=== PATIENT | female | born 1965 | race Hispanic/Latino ===

== ENCOUNTER 2023-03-24 14:01 | Inpatient (IN) | payer BC ==
--- OUTSIDE RECORDS SUMMARY | 2023-03-24 14:05 | XMS REPORT | Clinical Summary ---
Author Name Unknown Organization [facility] Address [address] [place] [address] Care Team Providers Care Childhood Development Teacher Name Role Phone Sandoval Galvez MD Unavailable [phone] Kolby Abdullahi MD Primary Care Provid er Maribel Mike Primary Care Provider Nya Frost APRN Unavailable Jennifer Kessler APRN Primary Care Provider [phone] Allergies Active Allergy Reactions Criticality Noted Date Comments Adhesive Tape-Silicones 01/07/2018 Latex 01/07/2018 Medications Medication Sig Dispensed Refills Start Date End Date Status losartan (COZAAR) 50 mg tablet Take 1 tablet (50 mg) by mouth daily. 0 05/08/2018 Active valACYclovir (VALTREX) 500 mg tablet Take 1 tablet (500 mg) by mouth as needed. 0 02/25/2020 Active candesartan (ATACAND) 32 mg tablet daily. 0 01/17/2022 Active hydroxyzine HCl (ATARAX) 10 mg tablet as needed. 0 01/17/2022 Active metFORMIN (GLUCOPHAGE-XR) 500 mg 24 hr tablet daily. 0 01/17/2022 Active semaglutide (Ozempic) 1 mg/dose (4 mg/3 mL) pnij once a week. 0 Active peg 3350-electrolyte s (Golytely) 236-22.74-6.74 g solutionIndicati ons:Colonoscopy planned Use as directed by ordering provider. 4000 mL 0 01/18/2023 Active tamoxifen (NOLVADEX) 20 mg tabletIndication s:At high risk for breast cancer Take 1 tablet (20 mg) by mouth daily. 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 018 Atypical lobular hyperplasia of breast Obstructive sleep apnea Overview: not using cpap at this time Encounters Date Type Department Care Team Description 02/20/2023 9:50 AM WAREHOUSE TEAM MEMBER - 02/20/2023 10:45 AM WAREHOUSE TEAM MEMBER Surgery [facility] - Endoscopy [address] Jena Magana, [address] [place] [address] Abhijit Green MD DIAGNOSTIC FLEXIBLE COLONOSCOPY PROXIMAL TO SPLENIC FLEXURE 02/20/2023 9:47 AM WAREHOUSE TEAM MEMBER Anesthesia Event [facility] - Endoscopy [address] Jena Magana, [address] [place] [id number] Leonardo Asencio MD 02/20/2023 8:56 AM WAREHOUSE TEAM MEMBER - 02/20/2023 11:30 AM WAREHOUSE TEAM MEMBER Hospital Encounter [facility] - Endoscopy [address] Jena Magana, [address] [place] [address] Abhijit Green MD Discharge Disposition: Home 02/20/2023 Prep for Surgery [facility] - GI, Hepatology & Nutrition [address] Jenatruong Magana [address] [place] [address] Jazmín So PA Personal history of colonic polyp (Primary Dx); Family history of cancer of colon 02/20/2023 Travel 02/19/2023 4:30 PM WAREHOUSE TEAM MEMBER POEM Appointments [facility] [address] [place] [address], [address]th [place] [address] Jennifer Kessler APRN 02/19/2023 Documentation MD [facility] - GI, Hepatology & Nutrition [address] [address] [place] [address] Jazmín So PA 02/15/2023 11:59 PM WAREHOUSE TEAM MEMBER Anesthesia Event [facility] [address] [place] [address], 6th [place] [address] Crys Joyce, RICK 01/18/2023 Orders Only MD [facility] - GI, Hepatology & Nutrition [address] [address] [place] [address] Jazmín So PA Colonoscopy planned (Primary Dx) 01/03/2023 Documentation [facility] [address] [place] [address], [address] [place] [address] Peggy Aguirre, RN 01/02/2023 2:40 PM CDT Office Visit [facility] [address] [place] [address], [address] [place] [address] [place] [address] Maribel Mike PA Vo, Cathy, SARAH At increased risk of malignant neoplasm of breast (Primary Dx); Lobular carcinoma in situ of unspecified breast; Encounter for other screening for malignant neoplasm of breast; Encounter for screening for malignant neoplasm of colon; Atypical ductal hyperplasia of breast 01/02/2023 2:13 PM CDT - 01/02/2023 11:59 PM CDT Hospital Encounter [facility] [place] [address] Promise Desouza MD Exam of participant in clinical research Discharge Disposition: Home 01/02/2023 1:25 PM CDT Ancillary Procedure [facility] [address] [place] [address], [address] [place] [address] [place] [address] Maribel Mike PA Breast screening 01/02/2023 Travel 12/27/2022 Orders Only [facility] [address], [address]nd [place] [address] Monserrat Browning Exam of participant in clinical research (Primary Dx) 07/03/2022 2:00 PM CDT Office Visit [facility] [address] [facility], 2nd [place] [address] Adina Aguilar APRN Guzman Castillo, Brenda, PA Encounter for other screening for malignant neoplasm of breast (Primary Dx); Lobular carcinoma in situ of unspecified breast; At increased risk of malignant neoplasm of breast; Screening for malignant neoplasms of colon 07/03/2022 12:15 PM CDT Ancillary Procedure [facility] MRI [address] [facility], 4th [place] [address] Adina Aguilar APRN Lobular carcinoma in situ of unspecified breast; At increased risk of malignant neoplasm of breast 07/03/2022 Prep for [facility] Hepatology & Nutrition [facility], 7th [place] [address] Abiodun Olea PA 07/03/2022 Travel 06/22/2022 Refill [facility] [address] [facility], 2nd [place] [address] Renetta Lee APRN At high risk for breast cancer after 03/24/2022 Immunizations Name Administration Dates Next Due Moderna SARS-CoV-2 Vaccination 11/19/2020,2020 Surgical History Surgery Date Site/Laterality Comments CHOLECYSTECTOMY 03/12/1997 - 03/11/1998 [place] COLONOSCOPY FLX DX W/COLLJ SPEC WHEN PFRMD 12/17/2017 N/A Procedure: DIAGNOSTIC FLEXIBLE COLONOSCOPY PROXIMAL TO SPLENIC FLEXURE; Surgeon: Ignacio Miles MD; Location: [facility] ENDOSCOPY; Service: GASTROENTEROLOGY HYSTERECTOMY 03/12/2017 - 03/11/2018 with bilateral oophorectomy MI COLONOSCOPY FLX DX W/COLLJ SPEC WHEN PFRMD 02/20/2023 N/A Procedure: DIAGNOSTIC FLEXIBLE COLONOSCOPY PROXIMAL TO SPLENIC FLEXURE; Surgeon: Abhijit Green MD; Location: [facility] ENDOSCOPY; Service: GASTROENTEROLOGY Medical History Medical History Date Comments Atypical lobular hyperplasia of breast Obstructive sleep apnea not usin g cpap at this time 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 03/2017 Fatty liver 2019 Covid-19 05/25/2020 Essential (primary) hypertension Family History Medical History Relation Name Comments Colon cancer Father with metastatic cancer to the liver Breast cancer Maternal Aunt Breast cancer Maternal Cousin dx in 40s Cervical cancer Maternal Grandmother Esophageal cancer Paternal Grandfather Colon cancer Paternal Grandmother Pancreatic cancer Paternal Uncle Thyroid cancer Sister Relation Name Status Comments Father Alive Maternal Aunt Alive Maternal Cousin Alive Maternal Grandmother Paternal Grandfather Paternal Grandmother Paternal Uncle Sister Social History Tobacco Use Types Packs/Day Years Used Date Smoking Tobacco: Never Smokeless Tobacco: Never Tobacco Cessation:Counseling Given: Not Answered Alcohol Use Standard Drinks/Week Comments Yes 0 (1 standard drink = 0.6 oz pur e alcohol) Rarely Sex and Gender Information Value Date Recorded Sex Assigned at Not on file Gender Identity Not on file Sexual Orientation Not on file Job Start Date Occupation Industry Not on file Not on file Not on file Obstetrics History Para Term AB IAB SAB Ectopic Multiple Livin g Live Births 3 3 3 Date Outcome GA Total Labor Labor/2nd/3rd Weight Sex Delivery Anes PTL Dora A1 A5 Name Cl in Para Para Para Comments Age of menarche: 15 Age of p arity: 17 Use of oral contraceptives: 14 years Use of hormone replacement therapy: none She denies any history of abnormal pap smears. Last Filed Vital Signs Vital Sign Reading Time Taken Comments Blood Pressure 132/69 02/20/2023 11:00 AM WAREHOUSE TEAM MEMBER Pulse 51 02/20/2023 11:00 AM WAREHOUSE TEAM MEMBER Temperature 36.8 C (98.2 F) 02/20/2023 10:[address] Respiratory Rate 14 02/20/2023 11:00 AM WAREHOUSE TEAM MEMBER Oxygen Saturation 98% 02/20/2023 11:00 AM WAREHOUSE TEAM MEMBER Inhaled Oxygen Concentration - - Weight 88 kg (194 lb 0.1 oz) 02/20/2023 9:25 AM WAREHOUSE TEAM MEMBER Height 156 cm (5' 1.42") 02/20/2023 9:25 AM WAREHOUSE TEAM MEMBER Body Mass Index 36.16 02/20/2023 9:25 AM WAREHOUSE TEAM MEMBER Plan of Treatment Upcoming Encounters Date Type Department Care Team Description 07/05/2023 2:00 PM CDT Office Visit [facility] [address] [place] [address] [facility], 2nd [place] [address] Jennifer Kessler APRN [address] [place] [address] 07/05/2023 3:15 PM CDT Ancillary Procedure [facility] MRI [address] [facility], 4th [place] [address] Jennifer Kessler, ROLL MILL OPERATOR [address] [place] [address] 02/21/2028 Hospital Encounter MD [facility] - Endoscopy [address] [address], [address] [place] [address] Abhijit Green MD [address] [place] [address] Scheduled Procedures Name Priority Associated Diagnoses Date/Ti me DIAGNOSTIC FLEXIBLE COLONOSC OPY PROXIMAL TO SPLENIC FLEXURE Personal history of colonic polyp Family history of cancer of colon Health Maintenance Due Date Last Done Comments COVID-19 Vaccination ( season) 2022 11/19/2020, 10/22/2020 Procedures Procedure Name Priority Date/Time Associated Diagnosis Comments POC GLUCOSE SCREEN Routine 02/20/2023 10 :39 AM WAREHOUSE TEAM MEMBER POC GLUCOSE SCREEN Routine 02/20/2023 9: 40 AM WAREHOUSE TEAM MEMBER DIAGNOSTIC FLEXIBLE COLONOSCOPY PROXIMAL TO SPLENIC FLEXURE 02/20/2023 9:37 AM WAREHOUSE TEAM MEMBER Personal history of colonic polyp EKG, 12-LEAD (PORTABLE) Routine 02/20/2023 RESEARCH PROTOCOL [id number] Routine 01/02/2023 2:27 PM CDT Exam of participant in clinical research MAMMO DIGITAL SCREENING BILATERAL W TALON Routine 01/02/2023 2:00 PM CDT Breast screening MRI BREAST BILATERAL W WO CONTRAST INCL CAD Routine 07/03/2022 2:03 PM CDT Lobular carcinoma in situ of unspecified breast At increased risk of malignant neoplasm of breast after 03/24/2022 Results * POC Glucose Screen - Fingerstick (02/20/2023 10:39 AM WAREHOUSE TEAM MEMBER) Only the most recent of2 resultswithin the time period is included. Pathologist [facility] Glucose Screen 78 70 - 99 mg/dL 02/20/2023 10:40 AM [facility] POC Sample Type Capillary 02/20/2023 10:40 AM [facility] Blood 02/20/2023 10:3 9 AM WAREHOUSE TEAM MEMBER 02/20/2023 10:40 AM WAREHOUSE TEAM MEMBER Narrative [facility] - 02/20/2023 10:40 AM WAREHOUSE TEAM MEMBER Capillary blood samples, e.g. obtained by fingerstick, may have inaccurate results in patients with decreased peripheral blood flow. Method description: All results are measured using Electrochemistry test methodology. The glucose in the sample mixes with the reagents on the test strip. The reaction produces an electric current. The amount of current produced is proportional to the glucose concentration in the blood. All POC Glucose screen test results, including critical values, must be interpreted and evaluated in the context of the patients' clinical findings. It is recommended to confirm any questionable test results by core lab methodology. Abhijit Green MD POCT ORDERABLES - DE VICE Performing Organization Address City/[facility]/ZIP Co de Phone Number [facility] [address] [id number] [place] [address] * EKG, 12-Lead (Portable) (02/20/2023) Leonardo Asencio MD ECG ORDERABLES NISSA IECG * Research Protocol [id number] (01/02/2023 2:27 PM CDT) Research Protocol Specimen Specimen Collected, Ready for Pickup. 01/02/2023 4:01 PM CDT [facility] Blood Venipuncture / Unknown 01/02/2023 2:27 PM CDT 01/02/2023 2:33 PM CDT Promise Desouza MD RESEARCH LAB Z CODES [facility] [address] [facility]. [address] [place] [address] * Mammography Digital Screening Bilateral with Talon (01/02/2023 2:00 PM CDT) Anatomical Region Laterality Modality Breast Bilateral Mammography 01/03/2023 10:3 6 AM CDT Impressions 01/03/2023 10:36 AM CDT There is no mammographic evidence of malignancy. Follow-up mammogram in 1 year is recommended. BI-RADS Category 2: Benign Finding(s) Narrative 01/03/2023 10:36 AM CDT CLINICAL INDICATION: Patient is a 57 year old female and is seen for screening. MAMMO DIGITAL SCREENING BILATERAL W TALON Digital Mammogram evaluated with Computer Aided Detection (CAD). COMPARISON: The present examination has been compared to prior imaging studies performed at an outside location on 04/24/2017, and at [facility] on 06/06/2018, 11/19/2019, 11/25/2020 and 12/09/2021. FINDINGS: There are scattered areas of fibroglandular density. 1: There is an oval mass with circumscribed margins in the middle upper outer region of the left breast. Finding remains unchanged from the prior study. 2: There are two marker clips in the left breast. In the right breast, no dominant mass, distortion, or suspicious calcifications are identified. Tomosynthesis performed in CC and MLO projections. Procedure Note Rachel Garcia MD - 01/03/2023 CLINICAL INDICATION: Patient is a 57 year old female and is seen for screening. MAMMO DIGITAL SCREENING BILATERAL W TALON Digital Mammogram evaluated with Computer Aided Detection (CAD). COMPARISON: The present examination has been compared to prior imaging studiesperformed at an outside location on 04/24/2017, and at [facility] on 06/06/2018, 11/19/2019, 11/25/2020 and 12/09/2021. FINDINGS: There are scattered areas of fibroglandular density. 1: There is an oval mass with circumscribed margins in the middle upperouter region of the left breast. Finding remains unchanged from the priorstudy. 2: There are two marker clips in the left breast. In the right breast, no dominant mass, distortion, or suspiciouscalcifications are identified. Tomosynthesis performed in CC and MLO projections. IMPRESSION: There is no mammographic evidence of malignancy. Follow-up mammogram in 1 year is recommended. BI-RADS Category 2: Benign Finding(s) Jennifer Vo ROLL MILL OPERATOR IMG MAMMOGRAPHY ORDE RABLES * MRI Breast Bilateral with and without Contrast incl CAD (07/03/2022 2:03 PM CDT) Anatomical Region Laterality Modality Breast Bilateral Magnetic Resonan ce 07/04/2022 9:32 AM CDT Impressions 07/04/2022 9:41 AM CDT Benign findings as above. ACR BI-RADS Category: 2. Recommend annual surveillance with mammography and breast MRI. Narrative 07/04/2022 9:41 AM CDT FULL RESULT: Examination: MRI BREAST BILATERAL W WO CONTRAST INCL CAD, 07/03/2022 2:03 PM Clinical History: 56-year-old woman with a history of needle biopsies of the left breast demonstrating lobular neoplasia (atypical lobular hyperplasia and lobular carcinoma in situ). Indication: Lobular neoplasia. Comparison: A review is made of multiple prior breast imaging studies including MRIs dating back to 2018. Technique: Bilateral breast MRI was performed before and after the intravenous administration of 9.7 mL of Gadavist per protocol. The following sequences were obtained on a 3T Siemens MAI: axial noncontrast T1-weighted, axial pre- and 4 postcontrast T1-weighted series, delayed postcontrast sagittal fat-suppressed T1-weighted, axial T2-weighted, axial DWI with ADC mapping [b 100, 800]. Serial subtraction images were generated during post-processing. EcoarkD was used for kinetic assessment. Findings: Breast composition: Scattered fibroglandular tissue. Early background parenchymal enhancement: Minimal. Left breast: There are no suspicious enhancing masses or areas of nonmass enhancement. There is susceptibility artifact at the 12-1 o'clock position of the left breast 9 cm from the nipple and the 12-1 o'clock position 5 cm from the nipple from prior needle biopsies revealing atypical lobular hyperplasia and lobular carcinoma in situ respectively. Right breast: There are no suspicious enhancing masses or areas of nonmass enhancement. Gi Basins, Bilateral: There is no lymphadenopathy in the visualized bilateral axillary or internal mammary regions. Procedure Note Abbie Asencio MD - 07/04/2022 FULL RESULT: Examination: MRI BREAST BILATERAL W WO CONTRAST INCL CAD, 07/03/2022 2:03PM Clinical History: 56-year-old woman with a history of needle biopsies ofthe left breast demonstrating lobular neoplasia (atypical lobularhyperplasia and lobular carcinoma in situ). Indication: Lobular neoplasia. Comparison: A review is made of multiple prior breast imaging studiesincluding MRIs dating back to 2018. Technique: Bilateral breast MRI was performed before and after the intravenousadministration of 9.7 mL of Gadavist per protocol. The following sequenceswere obtained on a 3T Siemens MAI: axial noncontrast T1-weighted, axialpre- and 4 postcontrast T1-weighted series, delayed postcontrast sagittalfat-suppressed T1-weighted, axial T2-weighted, axial DWI with ADC mapping[b 100, 800]. Serial subtraction images were generated duringpost-processing. embraaseaCAD was used for kinetic assessment. Findings: Breast composition: Scattered fibroglandular tissue. Early background parenchymal enhancement: Minimal. Left breast: There are no suspicious enhancing masses or areas of nonmass enhancement.There is susceptibility artifact at the 12-1 o'clock position of the leftbreast 9 cm from the nipple and the 12-1 o'clock position 5 cm from thenipple from prior needle biopsies revealing atypical lobular hyperplasiaand lobular carcinoma in situ respectively. Right breast: There are no suspicious enhancing masses or areas of nonmassenhancement. Gi Basins, Bilateral: There is no lymphadenopathy in the visualized bilateral axillary orinternal mammary regions. IMPRESSION: Benign findings as above. ACR BI-RADS Category: 2. Recommend annual surveillance with mammographyand breast MRI. Adina BERG MRI ORDERABLE S after 03/24/2022 Care Teams Childhood Development Teacher Relationship Specialty Start Date End Date Sandoval Galvez MD [address] [phone] PCP - External Referring Obstetrics/Gynecology 04/17/17 Kolby Abdullahi MD [address] [place] [address] PCP - General Cancer Prevention 08/15/21 07/02/22 Maribel Mike PA [address] [place] [address] PCP - General Cancer Prevention 07/03/22 01/01/23 Jennifer Kessler APRN [address] [place] [address] PCP - General Cancer Prevention 01/02/23 Nya Frost APRN [address] [place] [address] Nurse Practitioner Gastroenterology, Hepatology and Nutrition 09/17/17
[2023-03-24] MEDS ORDERED: ASPIRIN 81 MG CHEWABLE TABLET ONE ×2 (14:53→16:09)
[2023-03-24] MEDS ORDERED: LORazepam 2 MG/ML VIAL ONE (14:53)
[2023-03-24] MEDS ORDERED: FOLIC ACID 5 MG/ML VIAL ONE (14:54)
[2023-03-24] MEDS ORDERED: NA CHLORIDE 0.9% 1,000 ML ONE ×2 (14:54→16:09)
--- NOTE | 2023-03-24 15:08 | RAD REPORT ---
EXAM DESCRIPTION: Tisha Single View03/24/2023 2:49 pm CLINICAL HISTORY: cough COMPARISON: 2019 FINDINGS: The lungs appear clear of acute infiltrate. The heart is normal size IMPRESSION: No acute abnormalities displayed
--- NOTE | 2023-03-24 15:19 | RAD REPORT ---
EXAM DESCRIPTION: CT - Head Brain Wo Cont - 03/24/2023 2:49 pm CLINICAL HISTORY: Alteration of awareness/confusion COMPARISON: None TECHNIQUE: Computed axial tomography of the head was obtained. IV contrast was not requested. All CT scans are performed using dose optimization technique as appropriate and may include automated exposure control or mA/KV adjustment according to patient size. FINDINGS: An intracranial bleed is not seen The ventricles are normal in caliber No extra-axial fluid collection is noted. No significant hypodensity within the brain is seen. Empty sella turcica Fluid within the sinuses/ mastoids is not seen. IMPRESSION: No acute intracranial abnormality is seen If patient's symptoms persist MRI of the brain would be recommended
[2023-03-24 15:34] LABS: Absolute Lymphocytes (CBC) 1.6 K/uL (0.7-4.9); Hematocrit 39.4 % (36.0-45.0); Lymphocytes % 18.3 % (15.3-44.8); MPV 7.7 fL (7.6-11.3); Platelets 308 thou/uL (152-406); RBC Red Blood Cell Count 4.53 M/uL (3.86-4.86)
[2023-03-24 15:47] LABS: Protime INR 1.1
[2023-03-24 15:49] LABS: Albumin 3.7 g/dL (3.4-5.0); Bilirubin Direct 0.1 mg/dL (0-0.2); Bilirubin Indirect, Calculated 0.4 mg/dL (0.2-0.8); Bilirubin Total 0.5 mg/dL (0.2-1.0); Magnesium 2.1 mg/dL (1.6-2.4); Potassium 3.7 mEq/L (3.5-5.1); Protein, Total 8.3 g/dL (6.4-8.2)
[2023-03-24 15:51] LABS: Troponin High Sensitivity 60.9 pg/mL (<58.9)
--- NOTE | 2023-03-24 15:57 | ER ---
Nurse's Notes [facility] Name: Samreen Mendoza Age: 57 yrs Sex: Female : 1965 Arrival Date: 03/24/2023 Time: 14:01 Bed 15 Private MD: Diagnosis: Weakness;Adjustment disorder with mixed disturbance of emotions and conduct;Adjustment disorder with anxiety;Altered mental status, unspecified;Abnormal levels of other serum enzymes-ELEVATED TROPONIN;Non ST elevation [place] Presentation: 03/24 14:09 Chief complaint: Patient's son or daughter states: Patients sister this nj1 morning, while at their home there was a family argument and suddenly the patient stopped and asked her "What happened, what's going on, where are we at". Coronavirus screen: Vaccine status: Patient reports receiving the 2nd dose of the covid vaccine. Ebola Screen: Patient denies travel to an Ebola-affected area in the 21 days before illness onset. Initial Sepsis Screen: Does the patient meet any 2 criteria? No. Patient's initial sepsis screen is negative. Does the patient have a suspected source of infection? No. Patient's initial sepsis screen is negative. Risk Assessment: Do you want to hurt yourself or someone else? Patient reports no desire to harm self or others. Onset of symptoms was March 24, 2023 at 13:30. 14:09 Method Of Arrival: Wheelchair nj1 14:09 Acuity: MACEY 2 nj1 Historical: - Allergies: 14:11 No Known Allergies; nj1 - PMHx: 14:11 Breast cancer; nj1 - PSHx: 14:11 Cholecystectomy; Hysterectomy; nj1 - Immunization history:: Client reports receiving the 2nd dose of the Covid vaccine. - Social history:: Smoking status: Patient denies any tobacco usage or history of. Screenin:[address] [facility] ED Fall Risk Assessment (Adult) History of falling in the last 3 months, kc6 including since admission No falls in past 3 months (0 pts) Confusion or Disorientation Yes (5 pts) Intoxicated or Sedated No (0 pts) Impaired Gait No (0 pts) Mobility Assist Device Used No (0 pt) Altered Elimination No (0 pt) Score/Fall Risk Level 3 or more points = High Risk. Abuse screen: Denies threats or abuse. Denies injuries from another. Nutritional screening: No deficits noted. Tuberculosis screening: No symptoms or risk factors identified. Assessment: 15:27 General: Appears in no apparent distress. comfortable, well groomed, well developed, kc6 Behavior is cooperative, anxious, crying. Pain: Denies pain. Neuro: Level of Consciousness is awake, alert, obeys commands, confused, Oriented to person, place. Cardiovascular: Denies chest pain, Heart tones S1 S2 present Capillary refill < 3 seconds Rhythm is sinus rhythm. Respiratory: Airway is patent Trachea midline Respiratory effort is even, unlabored, Respiratory pattern is regular, symmetrical. GI: No signs and/or symptoms were reported involving the gastrointestinal system. : No signs and/or symptoms were reported regarding the genitourinary system. EENT: No signs and/or symptoms were reported regarding the EENT system. Derm: No signs and/or symptoms reported regarding the dermatologic system. Skin is intact, is healthy with good turgor, Skin is pink, warm \\T\\ dry. Musculoskeletal: No signs and/or symptoms reported regarding the musculoskeletal system. Circulation, motion, and sensation intact. Capillary refill < 3 seconds, Range of motion: intact in all extremities. 17:01 Reassessment: Patient appears in no apparent distress at this time. No changes from kc6 previously documented assessment. Patient and/or family updated on plan of care and expected duration. Pain level reassessed. Patient is alert, oriented x 3, equal unlabored respirations, skin warm/dry/pink. Vital Signs: 14:09 BP 207 / 87; Pulse 87; Resp 18; Temp 99.1(TE); Pulse Ox 100% ; Weight 90.72 kg; Height nj1 5 ft. 3 in. ; Pain 0/10; 15:27 BP 172 / 83; Pulse 71; Resp 16 S; Pulse Ox 99% on R/A; kc6 17:02 BP 166 / 73; Pulse 70; Resp 16 S; Pulse Ox 97% on R/A; kc6 14:09 Body Mass Index 35.43 (90.72 kg, 160.02 cm) nj1 14:09 Pain Scale: Adult nj1 Humberto Coma Score: 15:05 Eye Response: spontaneous(4). Motor Response: obeys commands(6). Verbal Response: meri oriented(5). Total: 15. NIH Stroke Scale Scores: 15:05 NIHSS Score: 0 meri ED Course: 14:03 Patient arrived in ED. ts1 14:11 Triage completed. nj1 14:12 Arm band placed on left wrist. nj1 14:16 Barber Rodriguez MD is Attending Physician. [facility] 14:49 Lyric Ball, RN is Primary Nurse. kc6 14:50 XRAY Chest (1 view) In Process Unspecified. EDMS 14:50 CT Head Brain wo Cont In Process Unspecified. EDMS 15:24 Inserted saline lock: 22 gauge in left antecubital area, using aseptic technique. me1 15:26 Patient maintains SpO2 saturation greater than 95% on room air. kc6 15:27 Patient has correct armband on for positive identification. Placed in gown. Bed in low kc6 position. Call light in reach. Side rails up X 1. Adult w/ patient. Client placed on continuous cardiac and pulse oximetry monitoring. NIBP monitoring applied. 15:52 Sanjay Rivera MD is Referral Physician. [facility] 15:52 Mark Anthony Swenson MD is Referral Physician. [facility] 15:55 Fernando Wiseman is Hospitalizing Provider. [facility] Administered Medications: 15:13 Drug: Aspirin PO Chewable Tablet 81 mg PO once Route: PO; kc6 15:26 Drug: NS 0.9% IV 1000 ml IV at 1 bolus Per protocol; 1000 mL bolus Route: IV; Rate: 1 kc6 bolus; Site: left antecubital; 17:39 Follow up: Response: No adverse reaction; IV Status: Completed infusion; IV Intake: kc6 1000ml 15:26 Drug: foLIC Acid IVPB 1 mg IVPB once Route: IVPB; Site: left antecubital; kc6 17:39 Follow up: Response: No adverse reaction; IV Status: Completed infusion kc6 15:26 Drug: Ativan IVP 0.5 mg IVP once Route: IVP; Site: left antecubital; kc6 17:40 Follow up: Response: No adverse reaction; Anxiety unchanged; RASS: Alert and Calm (0) kc6 16:23 Drug: Aspirin PO Chewable Tablet 243 mg PO once Route: PO; kc6 16:23 Drug: NS 0.9% IV 1000 ml IV at 125 ml/hr continuous Route: IV; Rate: 125 ml/hr; Site: kc6 left antecubital; 16:23 Drug: Metoprolol PO 25 mg PO once Route: PO; kc6 16:23 Drug: Enoxaparin Sub-Q 1 mg/kg Sub-Q once Route: Sub-Q; Site: abdomen; kc6 16:23 Drug: Atorvastatin PO 20 mg PO once Route: PO; kc6 Intake: 17:39 IV: 1000ml; Total: 1000ml. kc6 Outcome: 15:52 Discharge ordered by . meri 15:57 Decision to Hospitalize by Provider. meri 18:15 Patient left the ED. NIH Stroke Scale - NIH Stroke Score Date: 03/24/2023 Time: 15:05 Total Score = 0 10. Dysarthria (speech clarity - read or repeat words) - 0(Normal) 11. Extinction and Inattention (visual/tactile/auditory/spatial/personal) - 0(No abnormality) 1a. Level of Consciousness (LOC) - 0(Alert) 1b. Level of Consciousness (LOC) (Month \\T\\ Age) - 0(Both) 1c. LOC Commands (Open \\T\\ Closes Eyes/Courtesy Clerk) - 0(Both) 2. Best Gaze (Lateral Gaze Paresis) - 0(Normal) 3. Visual Field Loss - 0(No visual loss) 4. Facial Palsy - 0(Normal) 5a. Left Arm: Motor (10-second hold) - 0(No drift) 5b. Right Arm: Motor (10-second hold) - 0(No drift) 6a. Left Leg: Motor (5-second hold - always test supine) - 0(No drift) 6b. Right Leg: Motor (5-second hold - always test supine) - 0(No drift) 7. Limb Ataxia (finger/nose \\T\\ heel/amaya - test with eyes open) - 0(Absent) 8. Sensory Loss (pinprick arms/legs/face) - 0(Normal) 9. Best Language: Aphasia (description/naming/reading) - 0(No aphasia) Initials: [facility] Signatures: Dispatcher [employer] Barber Blanco MD MD cha Botello, Elizabeth eb Campbell, Kaitlyn, RN RN kc6 Love Barry RN RN nj1 Abbie Rucker, HALINA PAS ts1 Beba Ely RN RN me1
--- NOTE | 2023-03-24 15:57 | EDPHYS ---
Physician Documentation [facility] Name: Samreen Mendoza Age: 57 yrs Sex: Female : 1965 Arrival Date: 03/24/2023 Time: 14:01 Bed 15 Private MD: ED Physician Barber Rodriguez HPI: 03/24 16:33 This 57 yrs old Female presents to ER via Wheelchair with complaints of meri Altered Mental Status. 14:43 The patient presents with confusion, decreased responsiveness, trouble concentrating. meri Onset: The symptoms/episode began/occurred just prior to arrival. Possible causes: CVA or TIA, low blood sugar, seizure. Associated signs and symptoms: Pertinent positives: confusion, lightheadedness. Current symptoms: In the emergency department the patient's symptoms have improved, moderately, is less confused. Patient's baseline: Neuro: alert and fully oriented. The patient has experienced similar episodes in the past, several times, WHEN UPSET AND THREATENED. Historical: - Allergies: 14:11 No Known Allergies; nj1 - PMHx: 14:11 Breast cancer; nj1 - PSHx: 14:11 Cholecystectomy; Hysterectomy; nj1 - Immunization history:: Client reports receiving the 2nd dose of the Covid vaccine. - Social history:: Smoking status: Patient denies any tobacco usage or history of. ROS: 14:44 Constitutional: Negative for fever, chills, and weight loss, Eyes: Negative for injury, meri pain, redness, and discharge, ENT: Negative for injury, pain, and discharge, Neck: Negative for injury, pain, and swelling, Cardiovascular: Negative for chest pain, palpitations, and edema, Respiratory: Negative for shortness of breath, cough, wheezing, and pleuritic chest pain, Abdomen/GI: Negative for abdominal pain, nausea, vomiting, diarrhea, and constipation, Back: Negative for injury and pain, : Negative for injury, bleeding, discharge, and swelling, MS/Extremity: Negative for injury and deformity, Skin: Negative for injury, rash, and discoloration, Psych: Negative for depression, anxiety, suicide ideation, homicidal ideation, and hallucinations, Allergy/Immunology: Negative for hives, rash, and allergies, Endocrine: Negative for neck swelling, polydipsia, polyuria, polyphagia, and marked weight changes, Hematologic/Lymphatic: Negative for swollen nodes, abnormal bleeding, and unusual bruising, 14:44 Neuro: Positive for altered mental status, dizziness, Exam: 14:44 Constitutional: This is a well developed, well nourished patient who is awake, alert, meri and in no acute distress. Head/Face: Normocephalic, atraumatic. Eyes: Pupils equal round and reactive to light, extra-ocular motions intact. Lids and lashes normal. Conjunctiva and sclera are non-icteric and not injected. Cornea within normal limits. Periorbital areas with no swelling, redness, or edema. ENT: Nares patent. No nasal discharge, no septal abnormalities noted. Tympanic membranes are normal and external auditory canals are clear. Oropharynx with no redness, swelling, or masses, exudates, or evidence of obstruction, uvula midline. Mucous membranes moist. Neck: Trachea midline, no thyromegaly or masses palpated, and no cervical lymphadenopathy. Supple, full range of motion without nuchal rigidity, or vertebral point tenderness. No Meningismus. Chest/axilla: Normal chest wall appearance and motion. Nontender with no deformity. No lesions are appreciated. Cardiovascular: Regular rate and rhythm with a normal S1 and S2. No gallops, murmurs, or rubs. Normal PMI, no JVD. No pulse deficits. Respiratory: Lungs have equal breath sounds bilaterally, clear to auscultation and percussion. No rales, rhonchi or wheezes noted. No increased work of breathing, no retractions or nasal flaring. Abdomen/GI: Soft, non-tender, with normal bowel sounds. No distension or tympany. No guarding or rebound. No evidence of tenderness throughout. Back: No spinal tenderness. No costovertebral tenderness. Full range of motion. Female : Normal external genitalia. Skin: Warm, dry with normal turgor. Normal color with no rashes, no lesions, and no evidence of cellulitis. MS/ Extremity: Pulses equal, no cyanosis. Neurovascular intact. Full, normal range of motion. Neuro: Awake and alert, GCS 15, oriented to person, place, time, and situation. Cranial nerves II-XII grossly intact. Motor strength 5/5 in all extremities. Sensory grossly intact. Cerebellar exam normal. Normal gait. Psych: Awake, alert, with orientation to person, place and time. Behavior, mood, and affect are within normal limits. 14:44 ECG was reviewed by the Attending Physician. 16:33 ECG was reviewed by the Attending Physician. meri Vital Signs: 14:09 BP 207 / 87; Pulse 87; Resp 18; Temp 99.1(TE); Pulse Ox 100% ; Weight 90.72 kg; Height nj1 5 ft. 3 in. ; Pain 0/10; 15:27 BP 172 / 83; Pulse 71; Resp 16 S; Pulse Ox 99% on R/A; kc6 17:02 BP 166 / 73; Pulse 70; Resp 16 S; Pulse Ox 97% on R/A; kc6 14:09 Body Mass Index 35.43 (90.72 kg, 160.02 cm) nj1 14:09 Pain Scale: Adult nj1 NIH Stroke Scale Scores: 15:05 NIHSS Score: 0 meri Humberto Coma Score: 15:05 Eye Response: spontaneous(4). Motor Response: obeys commands(6). Verbal Response: meri oriented(5). Total: 15. MDM: 14:16 Patient medically screened. meri 15:08 Differential Diagnosis: CVA, electrolyte abnormality, alcohol intoxication, meri hypoglycemia, intracranial bleed, seizure, sepsis, UTI, volume depletion, cardiac arrhythmia, generalized weakness, hyperventilation, hypovolemia, idiopathic dizziness, near-syncope, syncope, vertigo. Data reviewed: vital signs, nurses notes, lab test result(s), EKG, radiologic studies, CT scan, plain films. Consideration of Admission/Observation Escalation of care including admission/observation considered. I considered the following discharge prescriptions or medication management in the emergency department Medications were administered in the Emergency Department. See MAR. Independent interpretation of the following test(s) in the Emergency Department EKG: See my EKG interpretation above. Test considered but Not performed: MRI: NO MRI BRAIN. Historians other than the Patient: Family Member: DAUGHTER AND SISTER WELL INFORMED. Care significantly affected by the following chronic conditions: Cancer. Counseling: I had a detailed discussion with the patient and/or guardian regarding the historical points, exam findings, and any diagnostic results supporting the discharge/admit diagnosis, lab results, radiology results, the need for outpatient follow up, for definitive care, a family practitioner, a neurologist, a psychiatrist. 03/24 14:18 Order name: Basic Metabolic Panel; Complete Time: 16:51 meri 03/24 14:18 Order name: CBC with Diff; Complete Time: 15:51 meri 03/24 14:18 Order name: LFT's; Complete Time: 16:51 meri 03/24 14:18 Order name: Magnesium; Complete Time: 16:51 emri 03/24 14:18 Order name: NT PRO-BNP; Complete Time: 16:51 meri 03/24 14:18 Order name: PT-INR; Complete Time: 15:51 meri 03/24 14:18 Order name: Troponin HS; Complete Time: 16:51 meri 03/24 14:18 Order name: Urinalysis w/ reflexes meri 03/24 16:11 Order name: Lipid Profile; Complete Time: 16:51 EDMS 03/24 17:17 Order name: Thyroid Stimulating Hormone EDMS 03/24 17:17 Order name: Urinalysis w/ reflexes EDMS 03/24 17:17 Order name: Basic Metabolic Panel EDMS 03/24 17:17 Order name: Basic Metabolic Panel EDMS 03/24 17:17 Order name: CBC with Automated Diff EDMS 03/24 17:17 Order name: CBC with Automated Diff EDMS 03/24 17:17 Order name: Magnesium EDMS 03/24 17:17 Order name: Magnesium EDMS 03/24 17:17 Order name: Phosphorus EDMS 03/24 17:17 Order name: Phosphorus EDMS 03/24 17:17 Order name: Troponin High Sensitivity EDMS 03/24 17:17 Order name: Troponin High Sensitivity EDMS 03/24 17:17 Order name: Troponin High Sensitivity EDMS 03/24 14:18 Order name: XRAY Chest (1 view); Complete Time: 15:11 meri 03/24 14:18 Order name: CT Head Brain wo Cont; Complete Time: 15:26 03/24 14:18 Order name: EKG; Complete Time: 14:18 meri 03/24 15:54 Order name: EKG; Complete Time: 15:55 meri 03/24 14:18 Order name: Cardiac monitoring; Complete Time: 15:13 03/24 14:18 Order name: EKG - Nurse/Tech; Complete Time: 15:13 03/24 14:18 Order name: IV Saline Lock; Complete Time: 15:26 03/24 14:18 Order name: Labs collected and sent; Complete Time: 15:26 [facility] 03/24 14:18 Order name: O2 Per Protocol; Complete Time: : [facility] 03/24 14:18 Order name: O2 Sat Monitoring; Complete Time: [facility] 03/24 15:54 Order name: EKG - Nurse/Tech; Complete Time: 16:23 [facility] EC:44 Rate is 75 beats/min. Rhythm is regular. QRS [place] is Normal. TN interval is normal. QRS meri interval is normal. QT interval is normal. No Q waves. T waves are Normal. Clinical impression: NSR w/ Non-specific ST/T Changes and No evidence of ischemia. Interpreted by me. Reviewed by me. 16:33 Rate is 75 beats/min. Rhythm is regular. QRS [place] is Normal. TN interval is normal. QRS meri interval is normal. QT interval is normal. No Q waves. T waves are Inverted in leads II, III, aVF, V4, V5, V6. Clinical impression: NSR w/ Non-specific ST/T Changes. Interpreted by me. Reviewed by me. Administered Medications: 15:13 Drug: Aspirin PO Chewable Tablet 81 mg PO once Route: PO; kc6 15:26 Drug: NS 0.9% IV 1000 ml IV at 1 bolus Per protocol; 1000 mL bolus Route: IV; Rate: 1 kc6 bolus; Site: left antecubital; 17:39 Follow up: Response: No adverse reaction; IV Status: Completed infusion; IV Intake: kc6 1000ml 15:26 Drug: foLIC Acid IVPB 1 mg IVPB once Route: IVPB; Site: left antecubital; kc6 17:39 Follow up: Response: No adverse reaction; IV Status: Completed infusion kc6 15:26 Drug: Ativan IVP 0.5 mg IVP once Route: IVP; Site: left antecubital; kc6 17:40 Follow up: Response: No adverse reaction; Anxiety unchanged; RASS: Alert and Calm (0) kc6 16:23 Drug: Aspirin PO Chewable Tablet 243 mg PO once Route: PO; kc6 16:23 Drug: NS 0.9% IV 1000 ml IV at 125 ml/hr continuous Route: IV; Rate: 125 ml/hr; Site: kc left antecubital; 16:23 Drug: Metoprolol PO 25 mg PO once Route: PO; kc6 16:23 Drug: Enoxaparin Sub-Q 1 mg/kg Sub-Q once Route: Sub-Q; Site: abdomen; kc6 16:23 Drug: Atorvastatin PO 20 mg PO once Route: PO; kc6 Disposition Summary: 03/24/23 15:57 Hospitalization Ordered Notes: Hospitalization Status: Observation meri Provider: Fernando Wiseman cha Location: Telemetry/MedSurg (observation)(03/24/23 15:57) meri Condition: Stable(03/24/23 15:57) meri Problem: new(03/24/23 15:57) meri Symptoms: have improved(03/24/23 15:57) meri Bed/Room Type: Standard meri Room Assignment: 212(03/24/23 17:35) eb Diagnosis - Weakness meri - Adjustment disorder with mixed disturbance of emotions and conduct(03/24/23 15:57) meri - Adjustment disorder with anxiety(03/24/23 15:57) meri - Altered mental status, unspecified meri - Abnormal levels of other serum enzymes - ELEVATED TROPONIN meri - Non ST elevation [place] meri Forms: - Medication Reconciliation Form meri - SBAR form meri - Leadership Thank You Letter [facility] NIH Stroke Scale - NIH Stroke Score Date: 03/24/2023 Time: 15:05 Total Score = 0 10. Dysarthria (speech clarity - read or repeat words) - 0(Normal) 11. Extinction and Inattention (visual/tactile/auditory/spatial/personal) - 0(No abnormality) 1a. Level of Consciousness (LOC) - 0(Alert) 1b. Level of Consciousness (LOC) (Month \T\ Age) - 0(Both) 1c. LOC Commands (Open \T\ Closes Eyes/Multi Punch Operator) - 0(Both) 2. Best Gaze (Lateral Gaze Paresis) - 0(Normal) 3. Visual Field Loss - 0(No visual loss) 4. Facial Palsy - 0(Normal) 5a. Left Arm: Motor (10-second hold) - 0(No drift) 5b. Right Arm: Motor (10-second hold) - 0(No drift) 6a. Left Leg: Motor (5-second hold - always test supine) - 0(No drift) 6b. Right Leg: Motor (5-second hold - always test supine) - 0(No drift) 7. Limb Ataxia (finger/nose \T\ heel/amaya - test with eyes open) - 0(Absent) 8. Sensory Loss (pinprick arms/legs/face) - 0(Normal) 9. Best Language: Aphasia (description/naming/reading) - 0(No aphasia) Initials: meri Signatures: Dispatcher [employer] EDBarber Harley MD MD cha Botello, Elizabeth eb Campbell, Kaitlyn RN RN kc6 Love Barry RN RN nj1 Corrections: (The following items were deleted from the chart) 15:52 15:52 Home meri meri 15:52 15:52 new meri meri 15:52 15:52 have improved meri meri 15:52 15:52 Stable meri meri 15:52 15:52 Adjustment disorder with anxiety meri meri 15:52 15:52 Adjustment disorder with mixed disturbance of emotions and conduct meri meri 16:09 14:43 This 57 yrs old Female presents to ER via Wheelchair with [facility] complaints of Altered Mental Status. meri 16:11 15:55 LIPID PROFILE+C.LAB.BRZ ordered. EDMS EDMS 17:35 15:57 meri
[2023-03-24] MEDS ORDERED: ATORVASTATIN 20 MG TAB ONE (16:08)
[2023-03-24] MEDS ORDERED: METOPROLOL TAR 25 MG TAB ONE (16:08)
[2023-03-24] MEDS ORDERED: ENOXAPARIN 100 MG/ML SYR SQ ONE (16:08)
[2023-03-24] MEDS ORDERED: ONDANSETRON 4 MG/2 ML VIAL IV PRN (17:09)
[2023-03-24] MEDS ORDERED: ACETAMINOPHEN 325 MG TABLET PO PRN (17:09)
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
[2023-03-24] MEDS ORDERED: LORAZEPAM 1 MG TABLET PO PRN (17:32)
[2023-03-24] MEDS: NA CHLORIDE 0.9% 1,000 ML IV SCH (18:20)
[2023-03-24 18:35] VITALS: BMI 34.5
[2023-03-24 19:44] LABS: Specific Gravity 1.005 (1.005-1.030); Urine Bacteria None Seen /HPF (<20); Urine Bilirubin NEGATIVE (Negative); Urine Blood Trace (Negative); Urine Clarity Clear (Clear); Urine Color Colorless (Yellow); Urine Glucose NEGATIVE (Negative); Urine Protein NEGATIVE (Negative); Urine RBC <5 /HPF (None Seen); Urine Urobilinogen Normal (Normal); Urine pH 6.5 (5.0-7.0)
[2023-03-24] MEDS: ENOXAPARIN 100 MG/ML SYR SQ SCH (21:50)
[2023-03-25] MEDS: NA CHLORIDE 0.9% 1,000 ML IV SCH ×2 (06:40→14:57)
[2023-03-25 06:56] LABS: Magnesium 2.2 mg/dL (1.6-2.4); Phosphorus 3.6 mg/dL (2.5-4.9); Potassium 3.8 mEq/L (3.5-5.1)
[2023-03-25 08:23] LABS: Absolute Lymphocytes (CBC) 1.6 K/uL (0.7-4.9); Hematocrit 35.9 % (36.0-45.0); Lymphocytes % 36.7 % (15.3-44.8); MCV 87.2 fL (80-100); MPV 7.8 fL (7.6-11.3); Platelets 273 thou/uL (152-406); RBC Red Blood Cell Count 4.11 M/uL (3.86-4.86)
[2023-03-25] MEDS ORDERED: POTASSIUM CL SA 10 MEQ TAB PO ONE (09:00)
--- NOTE | 2023-03-25 09:04 | RAD REPORT ---
EXAM DESCRIPTION: CT - Chest For Pe Angio - 03/25/2023 8:47 am CLINICAL HISTORY: Chest pain COMPARISON: None. TECHNIQUE: Dynamically enhanced axial 3 mm thick images of the chest were obtained during administra tion of 100 mL Isovue 370 IV contrast. Coronal and oblique reconstruction images were generated and r eviewed. Exam utilizes a protocol for optimal evaluation of pulmonary arterial tree. Maximum intensity projections 3D imaging was utilized All CT scans are performed using dose optimization technique as appropriate and may include automated exposure control or mA/KV adjustment according to patient size. FINDINGS: A pulmonary embolus is not seen. A thoracic aortic aneurysm is not noted. A pleural effusion is not seen. A pericardial effusion is not seen. Mild bilateral ground-glass opacities. Left lung calcified granuloma IMPRESSION: Negative for a pulmonary embolism. Mild bilateral ground-glass opacities indicative of a mild alveolitis
[2023-03-25] MEDS: ENOXAPARIN 100 MG/ML SYR SQ SCH ×2 (09:16→20:36)
[2023-03-25] MEDS: ASPIRIN EC 81 MG TAB PO SCH (09:16)
--- NOTE | 2023-03-25 12:30 | P.PN ---
Subjective Date of Service: 03/25/23 Chief Complaint: Memory loss Patient currently has no complaints. Short and long-term memory are better but still has no recollection of events occurred over several hours yesterday She currently denies any chest pain or shortness of breath. Physical Examination - Vital Signs Temperature: 97.9 F Blood Pressure: 146/62 Pulse: 63 Respirations: 16 Pulse Ox (%): 96 - Physical Exam General: Alert, In no apparent distress, Oriented x3 HEENT: Mucous membr. moist/pink, Sclerae nonicteric Neck: JVD not distended Respiratory: Clear to auscultation bilaterally, Normal air movement Cardiovascular: No edema, Regular rate/rhythm, Normal S1 S2 Gastrointestinal: Normal bowel sounds, Soft and benign, Non-distended, No tenderness Musculoskeletal: No swelling, No tenderness Integumentary: No rashes, No cyanosis Neurological: Normal speech, Normal strength at 5/5 x4 extr, Cranial nerves 3-12 intact Lymphatics: No axilla or inguinal lymphadenopathy - Studies Laboratory Data (last 24 hrs) 03/25/23 03/25/23 03/24/23 07:59 06:26 15:55 WBC 4.30 Hgb 12.1 Hct 35.9 L Plt Count 273 PT INR Sodium 137 Potassium 3.8 BUN 8 Creatinine 0.48 L Glucose 83 Phosphorus 3.6 Magnesium 2.2 Total Bilirubin AST ALT Alkaline Phosphatase Triglycerides Cancelled Cholesterol Cancelled HDL Cholesterol Cancelled Cholesterol/HDL Ratio Cancelled 03/24/23 03/24/23 03/24/23 15:20 15:20 15:20 WBC 8.60 Hgb 13.1 Hct 39.4 Plt Count 308 PT 12.1 INR 1.10 Sodium 140 Potassium 3.7 BUN 11 Creatinine 0.66 Glucose 93 Phosphorus Magnesium 2.1 Total Bilirubin 0.5 AST 15 ALT 23 Alkaline Phosphatase 101 Triglycerides 81 Cholesterol 196 HDL Cholesterol 67 H Cholesterol/HDL Ratio 2.93 Assessment And Plan - Current Problems (Diagnosis) (1) Elevated troponin Current Visit: Yes Status: Acute (2) Panic attack Current Visit: Yes Status: Acute (3) Transient global amnesia Current Visit: Yes Status: Acute (4) Hypertensive urgency Current Visit: Yes Status: Acute - Plan Troponin trended up from 90 to 700 Continue aspirin, start statins. Patient is bradycardic so no beta-blockers. Discontinue IV fluid Neurochecks P.o. Ativan as needed for anxiety. TSH within normal range. Cardiology consulted. Blood pressure has improved. Hydralazine as needed for BP spikes. Heart healthy diet.
[2023-03-26] MEDS: ASPIRIN EC 81 MG TAB PO SCH (08:07)
[2023-03-26] MEDS: ENOXAPARIN 100 MG/ML SYR SQ SCH ×2 (08:08→20:32)
[2023-03-26] MEDS: NA CHLORIDE 0.9% 1,000 ML IV SCH ×2 (10:00)
[2023-03-26] MEDS ORDERED: LIDOCAINE 1% 20 ML MDV ONE (10:32)
[2023-03-26] MEDS ORDERED: HEPA 1000U/500MLS 2,000 UNIT/1,000 ML BAG IV ONE (10:32)
--- NOTE | 2023-03-26 11:35 | RAD REPORT ---
EXAM DESCRIPTION: MRI - Brain Wo Cont - 03/26/2023 10:25 am CLINICAL HISTORY: Transient Memory loss COMPARISON: Noncontrast head CT 03/24/2023 TECHNIQUE: Multiplanar multisequence MRI of the brain performed without IV contrast. FINDINGS: Punctate focus of diffusion signal abnormality along the left temporal horn subependymal r egion. On T2 imaging, this corresponds to a focus of near CSF signal intensity, may be along the chor oid plexus of the temporal horn. No other diffusion signal abnormality. No evidence of acute intracranial hemorrhage or abnormal extra-axial fluid collections. Mild diffuse parenchymal volume loss. Ventricular caliber otherwise within normal for age. Midline st ructures are unremarkable. Scattered subcortical and deep white matter T2/FLAIR hyperintensities, nonspecific, but suggestive of chronic small vessel ischemic changes. No mass effect or midline shift. Major vascular flow voids are preserved. Mastoid air cells are well aerated. Bilateral maxillary sinus polypoidal mucosal thickening. 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 No other acute intracranial process. No evidence of ventriculomegaly or mass effect. Mild burden of periventricular and deep white matter T2 hyperintensities, nonspecific, but may sugges t mild chronic small vessel ischemic changes. Bilateral maxillary sinus polypoidal inflammatory mucosal thickening.
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
[2023-03-26] MEDS ORDERED: MIDAZOLAM HCL 2 MG/2 ML INJ ONE (12:52)
[2023-03-26] MEDS ORDERED: FENTANYL CITR 100 MCG/2 ML ONE (12:52)
[2023-03-26] MEDS ORDERED: VERAPAMIL HCL 10 MG/4 ML VIAL IV ONE (12:52)
[2023-03-26] MEDS ORDERED: HEPARIN 10,000 UNIT/10 ML VIAL IV ONE (12:53)
[2023-03-26] MEDS ORDERED: ASPIRIN 325 MG TAB ONE (12:53)
[2023-03-26] MEDS ORDERED: CLOPIDOGREL 75 MG TABLET ONE (12:53)
[2023-03-26] MEDS ORDERED: ATROPINE SULF 1 MG/10 ML SYR IV ONE (12:53)
[2023-03-26] MEDS ORDERED: HEPARIN 5000 UNIT/ML 1 ML VIAL ONE (12:54)
--- NOTE | 2023-03-26 13:04 | P.PN ---
Subjective Date of Service: 03/26/23 Chief Complaint: Memory loss Patient currently has no complaints. No issues overnight. Physical Examination - Vital Signs Temperature: 97.2 F Blood Pressure: 137/50 Pulse: 63 Respirations: 18 Pulse Ox (%): 95 - Physical Exam General: Alert, In no apparent distress, Oriented x3 HEENT: Mucous membr. moist/pink Neck: Supple, JVD not distended Respiratory: Clear to auscultation bilaterally, Normal air movement Cardiovascular: No edema, Regular rate/rhythm, Normal S1 S2 Gastrointestinal: Normal bowel sounds, Soft and benign, Non-distended, No tenderness Musculoskeletal: No swelling Integumentary: No rashes, No cyanosis Neurological: Normal speech, Normal strength at 5/5 x4 extr Lymphatics: No axilla or inguinal lymphadenopathy Assessment And Plan - Current Problems (Diagnosis) (1) Elevated troponin Current Visit: Yes Status: Acute (2) Panic attack Current Visit: Yes Status: Acute (3) Transient global amnesia Current Visit: Yes Status: Acute (4) Hypertensive urgency Current Visit: Yes Status: Acute - Plan Troponin trended up from 90 to 700. Patient seen by cardiology and plan for cardiac cath today. Dr. Head input appreciated. Continue aspirin, start statins. Patient is bradycardic so no beta-blockers. 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 Aspirin and Plavix. Start Lipitor. P.o. Ativan as needed for anxiety. TSH within normal range. Blood pressure has improved. Hydralazine as needed for BP spikes. Heart healthy diet.
--- NOTE | 2023-03-26 13:38 | OP ---
Date of Procedure: 03/26/2023 Surgeon: SAROJ COX Procedures Performed: 1.Selective coronary angiogram. 2.Left heart catheterization. Indication: Trz-HD-clipujyyl myocardial infarction. Access: Right radial artery 6-Jamaican closed with TR band. Complications: None. Bleeding: Less than 20 mL. Anesthesia: Total sedation time was 20 minutes, used fentanyl and Versed. Description Of Procedure: After risks, benefits, alternatives were explained, patient agreed to proc edure, and signed informed consent. The patient was brought into the cardiac catheterization laborat way, prepped and draped in the usual sterile fashion. Then, I accessed right radial artery using ped iatric micropuncture kit, placed a 6-Jamaican Slender sheath and took 5-Jamaican [place] 4.0 catheter into the aortic root over a J-wire, engaged left main, took standard views and then in the RCA took standa rd views and the catheter was pushed over the wire into the LV, measured the LVEDP. Pullback did not record any gradient. Then, I removed the catheter and the sheath, placed TR band with good hemostas is. Findings: 1.Left main; large and normal. 2.LAD; large and normal, normal diagonal branches. 3.Left circumflex; normal and is large vessel. 4.RCA; large and normal. 5.LVEDP is normal at 6 mmHg. Conclusion: 1.Normal coronary arteries. 2.Normal LVEDP. Recommendation: Medical management. SR/MODL Voice ID: [id number] Report ID: [id number]
[2023-03-26 14:44] VITALS: O2SAT 98
--- NOTE | 2023-03-26 17:03 | EKG ---
Test Date: 2023-03-24 Test Time: 16:17:06 [employer]ounder [employer]: ASHLEY MEASUREMENT RESULTS: Intervals: Rate: 75 NE: 148 QRSD: 82 QT: 360 QTc: 402 [place]: P: 41 NE: 148 QRS: 32 T: 0 INTERPRETIVE STATEMENTS: Normal sinus rhythm with sinus arrhythmia Nonspecific ST abnormality Abnormal ECG No previous ECG available for comparison Electronically Signed On 03-26-23 16:58:05 CORNER FORMER by Satish Head
[2023-03-26] MEDS ORDERED: ATORVASTATIN 40 MG TAB PO SCH (21:00)
[2023-03-27] MEDS: NA CHLORIDE 0.9% 1,000 ML IV SCH ×2 (00:06→04:50)
[2023-03-27] MEDS ORDERED: POTASSIUM CL SA 10 MEQ TAB PO ONE (07:20)
--- NOTE | 2023-03-27 07:55 | P.PN ---
Date of Service: 03/27/23 Subjective: ROS: 10 point ROS as noted above, otherwise negative Physical Exam: Gen: Alert, Oriented, NAD HEENT: Normal conjunctiva, sclera anicteric CV: Regular rate & rhythm, no edema Pulm: nonlabored respirations on room air, clear bilaterally Abd: soft, nontender, nondistended Neuro: normal speech, normal affect Vitals Reviewed Problem List: NSTEMI Transient global amnesia Panic Attack Hypertensive Urgency NSTEMI Monitor on tele, Troponins elevated 60 -> 517 -> 711 CTA chest (03/25): no PE. 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 MRI brain (03/27): 2mm area of restricted diffusion medial left temporal lobe. Probably microinfarct. Neuro consulted ativan PRN Urinalysis unremarkable TSH okay Hypertensive Urgency BP improved. Stable last 24-48 hrs VTE: Lovenox Code: Full Dispo: Home
--- NOTE | 2023-03-27 09:31 | RAD REPORT ---
EXAM DESCRIPTION: MRI - Brain W/Wo Cont - 03/27/2023 9:19 am CLINICAL HISTORY: Temporal lobe lesion Headache, drowsiness COMPARISON: Brain Wo Cont dated 03/26/2023; Head Brain Wo Cont dated 03/24/2023 TECHNIQUE: Multi-sequence, multiplanar MR imaging of the brain was performed with contrast. FINDINGS: No intracranial hemorrhage, hydrocephalus, or extra-axial fluid collection.A few small T2/ FLAIR hyperintensities seen in the periventricular white matter. No edema or shift of midline structu res. No intracranial mass. 2 mm area of restricted diffusion the left medial temporal lobe probably r elated to a microinfarct.. The midline structures are normally formed. Mild polypoid thickening of the maxillary antra. Post-contrast images show no abnormal enhancement to suggest tumor or infection. IMPRESSION: Quite small 2 mm area of restricted diffusion medial left temporal lobe probably a micro infarct. No additional acute or concerning abnormality seen. No pathologic post-contrast enhancement suspected.
[2023-03-27] MEDS: ASPIRIN EC 81 MG TAB PO SCH (09:40)
[2023-03-27] MEDS: ENOXAPARIN 100 MG/ML SYR SQ SCH (09:41)
[2023-03-27 10:20] LABS: Potassium 4.2 mEq/L (3.5-5.1)
[2023-03-27 17:03] VITALS: BP 142/80; TEMP 97.5
--- NOTE | 2023-03-27 18:11 | RAD REPORT ---
EXAM DESCRIPTION: CT - Head angio - 03/27/2023 2:28 pm CLINICAL HISTORY: CVA, eval arteries COMPARISON: Head Brain Wo Cont dated 03/24/2023 TECHNIQUE: Axial CT angiography images of the head was performed with multiplanar and maximum intens ity projection reconstructions. Images performed following intravenous administration of 100mL Isovue 370. All CT scans are performed using dose optimization technique as appropriate and may include automated exposure control or mA/KV adjustment according to patient size. FINDINGS: No evidence of large vessel occlusion. No evidence of aneurysm or dissection flap is detec jake. No flow-limiting stenosis or vascular malformation identified. Antegrade flow is seen in the vertebral arteries. The vertebral arteries are codominant. The visualized dural venous sinuses are grossly patent. Right maxillary sinus polypoidal mucosal thickening. IMPRESSION: No evidence of large vessel occlusion or flow-limiting stenosis. Right maxillary sinus polypoidal mucosal thickening.
--- NOTE | 2023-03-27 18:21 | RAD REPORT ---
EXAM DESCRIPTION: US - CP - 03/27/2023 2:20 pm CLINICAL HISTORY: cva COMPARISON: Brain W/Wo Cont dated 03/27/2023; Brain Wo Cont dated 03/26/2023; Head Brain Wo Cont dated 03/24/2023 TECHNIQUE: Real-time sonographic grayscale, color duplex, and spectral wave Doppler evaluation of surendra th carotid systems was performed. FINDINGS: Normal high resistance waveforms are noted in both external carotid arteries. The common c arotid arteries and internal carotid arteries show normal low resistance waveforms. No significant plaque formation is seen. Peak systolic velocity less than 125 cm/ sec bilaterally. I CA/CCA peak systolic ratios less than 2.0 bilaterally. Antegrade flow seen in both vertebral arteries. Ill-defined nodules incidentally noted within the left thyroid lobe, not well evaluated. IMPRESSION: No significant atherosclerotic changes noted. No evidence of a hemodynamically significant stenosis. Incidentally noted left thyroid nodules. These can be further evaluated by dedicated thyroid ultrasou nd if clinically indicated. Evaluation of carotid artery stenosis, if any, is reported based on consensus recommendations of the Society of Radiologists in Ultrasound (Serge et al., Radiology, 2003)
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
[2023-03-27] MEDS ORDERED: levETIRAcetam 500 MG TAB PO SCH (21:00)
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
[2023-03-28] MEDS ORDERED: CLOPIDOGREL 75 MG TABLET PO SCH (09:00)
== END 2023-03-27 19:45 | disposition home or self-care (01) | DRG 100 ==
LOC: ER 14:01 → 2ND 17:44 → OBSVTOIN 03-25 09:19
PROVIDERS: ADMIT Internal Medicine; ATTEND Hospitalist
PROC: 4A023N7 Measurement of Cardiac Sampling and Pressure, Left Heart, Percutaneous Approach (ICD-10-PCS; principal; 2023-03-26)
PROC: B2111ZZ Fluoroscopy of Multiple Coronary Arteries using Low Osmolar Contrast (ICD-10-PCS; 2023-03-26)
DX: G40.209 Localization-related (focal) (partial) symptomatic epilepsy and epileptic syndromes with complex partial seizures, not intractable, without status epilepticus (principal); I21.4 Non-ST elevation (NSTEMI) myocardial infarction; I24.89 Other forms of acute ischemic heart disease; G45.4 Transient global amnesia; F41.0 Panic disorder [episodic paroxysmal anxiety]; I16.0 Hypertensive urgency; I10 Essential (primary) hypertension; F41.9 Anxiety disorder, unspecified; Z85.3 Personal history of malignant neoplasm of breast; Z90.49 Acquired absence of other specified parts of digestive tract; Z79.82 Long term (current) use of aspirin; Z79.02 Long term (current) use of antithrombotics/antiplatelets; Z79.899 Other long term (current) drug therapy; Z90.710 Acquired absence of both cervix and uterus
CPT/HCPCS: 36415; 70450; 70496; 70551; 70553; 71045; 71275; 76937; 80048; 80061; 80076; 81001; 83735; 83880; 84100; 84443; 84484; 85025; 85610; 93005; 93458; 93880; 96365; 96366; 96372; 96375; 99152; 99153; 99284; C1893; G0378; J0461; J1644; J1650; J2001; J2250; J3010; J7030; Q9966; Q9967